=== PATIENT | female | born 1980 | race Caucasian/White ===

== ENCOUNTER 2017-12-16 17:45 | Emergency (ER) | payer BC, OTHER ==
[2017-12-16 17:56] VITALS: TEMP 97.9
[2017-12-16] MEDS ORDERED: SODIUM CHLORIDE 0.9% 1,000 ML IV ONE (18:36)
--- NOTE | 2017-12-16 19:07 | ED ---
Female Urogenital HPI - General Source: patient Mode of arrival: ambulatory Limitations: no limitations - History of Present Illness Last Menstrual Period: 12/16/17 <Mag Page - Last Filed: 12/17/17 00:56> <Madeline Vela - Last Filed: 12/17/17 02:10> - General Chief complaint: Vaginal Bleeding Stated complaint: female Time Seen by Provider: 12/16/17 18:28 - History of Present Illness Initial comments: 37-year-old female patient presents to the emergency department today for evaluation of heavy vaginal bleeding with passage of blood clots the size of quarters. Patient states that she has been wearing a super tampon with a pad and has bled through 4 times today. Patient states that she had a miscarriage 2 years ago and since then has been having bleeding. Patient states that she did have health insurance that she never was evaluated. Patient states that she did get her health insurance back 2 weeks ago and did see her primary care physician. States that she was started on a hormone medication to stop the bleeding which it did however she started having bleeding again on Tuesday. Patient states that today the bleeding has intensified and she has passed several clots. Patient denies any dizziness, weakness, or syncope. She is A2. Denies any chance of currently, did have a negative test 2 weeks ago at the doctor's office. States that she is having lower abdominal cramping. Patient denies any recent rash, fever, chills, shortness breath, chest pain, nausea, vomiting, diarrhea, constipation, back pain, numbness, tingling, dysuria, urinary urgency, urinary frequency, headache, visual changes, or any other complaints. (Mag Page) - Related Data Home Medications Medication Instructions Recorded Confirmed ALPRAZolam [Xanax] 0.5 mg PO HS PRN 12/16/17 12/16/17 Citalopram Hydrobromide [CeleXA] 20 mg PO DAILY 12/16/17 12/16/17 Vitamin B Complex 1 cap PO DAILY 12/16/17 12/16/17 Vitamin C/Biotin [Hair, Skin and 1 tab PO DAILY 12/16/17 12/16/17 Nails] Allergies Allergy/AdvReac Type Severity Reaction Status Date / Time No Known Allergies Allergy Verified 12/16/17 18:44 Review of Systems ROS Other: All systems not noted in ROS Statement are negative. <Mag Page - Last Filed: 12/17/17 00:56> ROS Other: All systems not noted in ROS Statement are negative. <VelaMadeline P - Last Filed: 12/17/17 02:10> ROS Statement: Those systems with pertinent positive or pertinent negative responses have been documented in the HPI. Past Medical History Past Medical History: No Reported History History of Any Multi-Drug Resistant Organisms: None Reported Past Surgical History: Adenoidectomy, Tonsillectomy Past Psychological History: Depression Smoking Status: Never smoker Past Alcohol Use History: Occasional Past Drug Use History: None Reported <Mag Page - Last Filed: 12/17/17 00:56> General Exam Limitations: no limitations General appearance: alert, in no apparent distress, other (This is a well- developed, well-nourished adult female patient in no acute distress. Vital signs upon presentation are temperature 97.9F, pulse 79, respirations 18, blood pressure 110/72, pulse ox 100% on room air.) Eye exam: Present: normal appearance, PERRL, EOMI. Absent: scleral icterus, conjunctival injection, periorbital swelling ENT exam: Present: normal exam, normal oropharynx, mucous membranes moist Respiratory exam: Present: normal lung sounds bilaterally. Absent: respiratory distress, wheezes, rales, rhonchi, stridor Cardiovascular Exam: Present: regular rate, normal rhythm, normal heart sounds. Absent: systolic murmur, diastolic murmur, rubs, gallop, clicks GI/Abdominal exam: Present: soft, tenderness (Left lower quadrant tenderness), normal bowel sounds. Absent: distended, guarding, rebound, rigid Neurological exam: Present: alert, oriented X3, CN II-XII intact Psychiatric exam: Present: normal affect, normal mood Skin exam: Present: warm, dry, intact, normal color. Absent: rash <Mag Page - Last Filed: 12/17/17 00:56> Vital Signs 12/16/17 12/16/17 17:53 21:09 Temperature 97.9 F Pulse Rate 79 67 Respiratory 18 16 Rate Blood Pressure 110/72 113/58 O2 Sat by Pulse 100 100 Oximetry Medical Decision Making - Lab Data Result diagrams: 12/16/17 20:00 12/16/17 20:00 - Radiology Data Radiology results: report reviewed <Mag Page - Last Filed: 12/17/17 00:56> - Lab Data Result diagrams: 12/16/17 20:00 12/16/17 20:00 <Madeline Vela - Last Filed: 12/17/17 02:10> - Medical Decision Making 37-year-old female patient presented to the emergency department today for complaints of vaginal bleeding with passage of blood clots. Physical examination is relatively unremarkable. Abdomen soft and nontender. Patient is hemodynamically stable, vital signs stable. Labs reviewed and were unremarkable. Ultrasound showed a large right ovarian cyst with no evidence of ovarian torsion. Normal endometrium. Initially patient did refuse lab work, then changed her mind. This did delay results. The patient became upset stating that we were "not respectful of her time". I did explain that delay in blood draw did take extra time. I did discuss all results and findings with her. Did discuss that her bleeding is most likely related to a hormonal issue and she is instructed to follow-up with her lead software development engineer for further evaluation as soon as possible. Return parameters were discussed in detail. She verbalizes understanding. (Mag Page) I was available for consultation in the emergency department. The history and physical exam were done by the midlevel provider. I was consulted for this patient's care. I reviewed the case with the midlevel provider and based on their presentation of the patient, I agree with the assessment, medical decision making and plan of care as documented. (Madeline Vela) - Lab Data Lab Results 12/16/17 12/16/17 12/16/17 Range/Units 18:50 18:50 20:00 WBC 6.9 (3.8-10.6) k/uL RBC 4.15 (3.80-5.40) m/uL Hgb 13.4 (11.4-16.0) gm/dL Hct 38.7 (34.0-46.0) % MCV 93.3 (80.0-100.0) fL MCH 32.2 (25.0-35.0) pg MCHC 34.5 (31.0-37.0) g/dL RDW 12.7 (11.5-15.5) % Plt Count 213 (150-450) k/uL Neutrophils % 62 % Lymphocytes % 26 % Monocytes % 6 % Eosinophils % 2 % Basophils % 1 % Neutrophils # 4.3 (1.3-7.7) k/uL Lymphocytes # 1.8 (1.0-4.8) k/uL Monocytes # 0.4 (0-1.0) k/uL Eosinophils # 0.2 (0-0.7) k/uL Basophils # 0.1 (0-0.2) k/uL PT (9.0-12.0) sec INR (<1.2) APTT (22.0-30.0) sec Sodium (137-145) mmol/L Potassium (3.5-5.1) mmol/L Chloride (98-107) mmol/L Carbon Dioxide (22-30) mmol/L Anion Gap mmol/L BUN (7-17) mg/dL Creatinine (0.52-1.04) mg/dL Est GFR (CKD-EPI)AfAm (>60 ml/min/1.73 sqM) Est GFR (CKD-EPI)NonAf (>60 ml/min/1.73 sqM) Glucose (74-99) mg/dL Calcium (8.4-10.2) mg/dL Total Bilirubin (0.2-1.3) mg/dL AST (14-36) U/L ALT (9-52) U/L Alkaline Phosphatase (38-126) U/L Total Protein (6.3-8.2) g/dL Albumin (3.5-5.0) g/dL Urine Color Colorless Urine Appearance Clear (Clear) Urine pH 6.0 (5.0-8.0) Ur Specific [place] 1.002 (1.001-1.035) Urine Protein Negative (Negative) Urine Glucose (UA) Negative (Negative) Urine Ketones Negative (Negative) Urine Blood Moderate H (Negative) Urine Nitrite Negative (Negative) Urine Bilirubin Negative (Negative) Urine Urobilinogen <2.0 (<2.0) mg/dL Ur Leukocyte Esterase Small H (Negative) Urine RBC 1 (0-5) /hpf Urine WBC 4 (0-5) /hpf Ur Squamous Epith Cells 1 (0-4) /hpf Urine Bacteria Rare H (None) /hpf Urine HCG, Qual Not Detected (Not Detectd) 12/16/17 12/16/17 Range/Units 20:00 20:00 WBC (3.8-10.6) k/uL RBC (3.80-5.40) m/uL Hgb (11.4-16.0) gm/dL Hct (34.0-46.0) % MCV (80.0-100.0) fL MCH (25.0-35.0) pg MCHC (31.0-37.0) g/dL RDW (11.5-15.5) % Plt Count (150-450) k/uL Neutrophils % % Lymphocytes % % Monocytes % % Eosinophils % % Basophils % % Neutrophils # (1.3-7.7) k/uL Lymphocytes # (1.0-4.8) k/uL Monocytes # (0-1.0) k/uL Eosinophils # (0-0.7) k/uL Basophils # (0-0.2) k/uL PT 10.3 (9.0-12.0) sec INR 1.1 (<1.2) APTT 24.0 (22.0-30.0) sec Sodium 141 (137-145) mmol/L Potassium 3.8 (3.5-5.1) mmol/L Chloride 105 (98-107) mmol/L Carbon Dioxide 24 (22-30) mmol/L Anion Gap 12 mmol/L BUN 9 (7-17) mg/dL Creatinine 0.70 (0.52-1.04) mg/dL Est GFR (CKD-EPI)AfAm >90 (>60 ml/min/1.73 sqM) Est GFR (CKD-EPI)NonAf >90 (>60 ml/min/1.73 sqM) Glucose 81 (74-99) mg/dL Calcium 9.5 (8.4-10.2) mg/dL Total Bilirubin 0.8 (0.2-1.3) mg/dL AST 23 (14-36) U/L ALT 27 (9-52) U/L Alkaline Phosphatase 38 (38-126) U/L Total Protein 7.5 (6.3-8.2) g/dL Albumin 4.5 (3.5-5.0) g/dL Urine Color Urine Appearance (Clear) Urine pH (5.0-8.0) Ur Specific [place] (1.001-1.035) Urine Protein (Negative) Urine Glucose (UA) (Negative) Urine Ketones (Negative) Urine Blood (Negative) Urine Nitrite (Negative) Urine Bilirubin (Negative) Urine Urobilinogen (<2.0) mg/dL Ur Leukocyte Esterase (Negative) Urine RBC (0-5) /hpf Urine WBC (0-5) /hpf Ur Squamous Epith Cells (0-4) /hpf Urine Bacteria (None) /hpf Urine HCG, Qual (Not Detectd) - Radiology Data Transvaginal ultrasound of the pelvis was obtained. Report was readmitted to entirety. Impression by Dr. Buchanan shows simple dominant right ovarian cyst. Retroverted uterus. No evidence of ovarian torsion. Normal endometrium. (Mag Page) Disposition Is patient prescribed a controlled substance at d/c from ED?: No Time of Disposition: 21:17 <Mag Page - Last Filed: 12/17/17 00:56> <Madeline Vela - Last Filed: 12/17/17 02:10> Clinical Impression: Dysfunctional uterine bleeding, Ovarian cyst Disposition: HOME SELF-CARE Condition: Good Instructions: Dysfunctional Uterine Bleeding (ED), Ovarian Cyst (ED) Additional Instructions: All with gynecology for recheck as soon as possible. Return immediately for any new, worsening, or concerning symptoms. Referrals: Mayelin Cooper MD [Primary Care Provider] - 1-2 days
[2017-12-16 19:15] LABS: Appearance,Urine Clear (Clear); Bacteria,Urine Rare /hpf; Bilirubin,Urine Negative (Negative); Blood,Urine Moderate (Negative); Color,Urine Colorless; Glucose,Urine (UA) Negative (Negative); Ketones,Urine Negative (Negative); Leukocyte Esterase,Urine Small (Negative); Nitrite,Urine Negative (Negative); Protein,Urine Negative (Negative); RBC,Urine 1 /hpf (0-5); Specific Gravity,Urine 1.002 (1.001-1.035); Squamous Epithelial Cell,Urine 1 /hpf (0-4); Urobilinogen,Urine <2.0 mg/dL (<2.0); WBC,Urine 4 /hpf (0-5)
--- NOTE | 2017-12-16 19:58 | US ---
EXAMINATION TYPE: US transvaginal DATE OF EXAM: 12/16/2017 COMPARISON: NONE CLINICAL HISTORY: Pain. DUB x 3 months; now heavy menstruation after 10 days on oral hormone; TECHNIQUE: Transvaginal (TV) performed on unprepped EC patient to assess endometrium Date of LMP: in past week after DUB x 3 months EXAM MEASUREMENTS: Uterus: 9.0 x 6.3 x 5.3 cm Endometrial Stripe: 0.5 cm Right Ovary: 4.6 x 4.3 x 4.0 cm Left Ovary: 3.0 x 1.8 x 1.9 cm 1. Uterus: Retroverted 2. Endometrium: thickness wnl, but unable to correlate with DUB 3. Right Ovary: large simple follicular cyst = 3.8 x 3.6 x 3.3cm 4. Left Ovary: multiple small follicles Spectral, color and waveform Doppler imaging shows good arterial and venous flow within the ovaries ; there is no evidence for ovarian torsion. 5. Bilateral Adnexa: wnl 6. Posterior cul-de-sac: wnl IMPRESSION: Simple dominant right ovarian cyst. Retroverted uterus. No evidence of ovarian torsion. N ormal endometrium.
[2017-12-16 20:14] LABS: Basophils # (A) 0.1 k/uL (0-0.2); Basophils % (A) 1 %; Eosinophils # (A) 0.2 k/uL (0-0.7); Eosinophils % (A) 2 %; HCT 38.7 % (34.0-46.0); HGB 13.4 gm/dL (11.4-16.0); Lymphocytes # (A) 1.8 k/uL (1.0-4.8); Lymphocytes % (A) 26 %; MCH 32.2 pg (25.0-35.0); MCHC 34.5 g/dL (31.0-37.0); MCV 93.3 fL (80.0-100.0); Mean Platelet Volume 7.2; Monocytes # (A) 0.4 k/uL (0-1.0); Monocytes % (A) 6 %; Neutrophils # (A) 4.3 k/uL (1.3-7.7); Neutrophils % (A) 62 %; Platelet Count 213 k/uL (150-450); RBC 4.15 m/uL (3.80-5.40); RDW 12.7 % (11.5-15.5); WBC 6.9 k/uL (3.8-10.6)
[2017-12-16 20:29] LABS: ALT 27 U/L (9-52); AST 23 U/L (14-36); Albumin 4.5 g/dL (3.5-5.0); Alkaline Phosphatase 38 U/L (38-126); Anion Gap 12 mmol/L; Blood Urea Nitrogen 9 mg/dL (7-17); Calcium 9.5 mg/dL (8.4-10.2); Carbon Dioxide 24 mmol/L (22-30); Chloride 105 mmol/L (98-107); Glucose 81 mg/dL (74-99); Potassium 3.8 mmol/L (3.5-5.1); Sodium 141 mmol/L (137-145); Total Bilirubin 0.8 mg/dL (0.2-1.3); Total Protein 7.5 g/dL (6.3-8.2)
[2017-12-16 20:31] LABS: INR 1.1 (<1.2); Prothrombin Time 10.3 sec (9.0-12.0)
[2017-12-16 21:13] VITALS: BP 113/58; PULSE 67; RESP 16
== END 2017-12-16 21:20 | disposition home or self-care (01) ==
LOC: EC 17:45
DX: N83.201 Unspecified ovarian cyst, right side (principal); N93.8 Other specified abnormal uterine and vaginal bleeding; F32.9 Major depressive disorder, single episode, unspecified; Z79.899 Other long term (current) drug therapy; Z53.29 Procedure and treatment not carried out because of patient's decision for other reasons
CPT/HCPCS: 36415; 76830; 80053; 81001; 81025; 85025; 85610; 85730; 93975; 99284